=== PATIENT | female | born 1990 | race Caucasian/White ===

== ENCOUNTER 2023-09-12 22:13 | Inpatient (IN) | payer BC, SELFPAY ==
[2023-09-12 22:16] VITALS: BP 116/77; PULSE 117; RESP 18; TEMP 36.8; O2SAT 97; BMI 39.7
--- NOTE | 2023-09-12 22:45 | ED.ABDPAIN1 ---
HPI - Abdominal Pain General Chief Complaint: Abdominal Pain Stated Complaint: Abdominal Pain Time Seen by Provider: 09/12/23 22:18 Source: patient Mode of arrival: walk-in Limitations: no limitations History of Present Illness HPI narrative: 33-year-old female presents for evaluation of epigastric and right upper quadrant abdominal pain that radiates into her back. She recently had an outpatient ultrasound and went to [facility] for treatment. Her ultrasound showed multiple gallstones with no signs of acute cholecystitis. I reviewed her chart from [facility] and she did have an elevated white count at 14.7. The remainder of her labs are normal. She was discharged home with prescription for [place], Zofran and ibuprofen with referral to outpatient general surgery. She states that she has been taking his medications and her nausea is under control but she is having ongoing severe epigastric and right upper quadrant abdominal pain radiates into her back. She states that she ate fruit today because it was all she had at home. She denies any fever. She denies any chest pain or shortness of breath. She was referred to Dr Wray, general surgery but has not received a call from them yet. Related Data Home Medications Medication Instructions Recorded Confirmed albuterol sulfate 90 mcg/actuation inhalation 09/12/23 aerosol inhaler hydrocodone 5 mg-acetaminophen 325 tab 09/12/23 mg tablet ibuprofen 800 mg tablet mg 09/12/23 ondansetron 4 mg disintegrating mg 09/12/23 tablet Allergies Allergy/AdvReac Type Severity Reaction Status Date / Time No Known Drug Allergies Allergy Verified 09/12/23 22:22 Review of Systems ROS Status of ROS 10 or more systems reviewed and unremarkable except as noted in history and below [facility] Social History Smoking status: Never smoker Exam Narrative Exam Narrative: Nurses note and vital signs reviewed and patient is not hypoxic. She is tachycardic with a pulse of 117 General: Non toxic but uncomfortable appearing overweight female, no resp distress, no active vomiting Skin: Warm, dry, no pallor noted. There is no rash noted. Head: Normocephalic, atraumatic Eye: Normal conjunctiva, no drainage, EOMI. PERRL. No scleral icterus Ears, Nose, Mouth, and Throat: oral mucosa is moist. Nares patent. Mouth without vesicles. Ear canals patent. Tm's without Erythema Cardiovascular: Regular Rate and Rhythm, tachycardia at triage with pulse of 117 Respiratory: Patient is in no distress, no accessory muscle use, lungs are clear to auscultation, no wheezing, rales or rhonchi Back: non-tender, no CVA tenderness bilaterally to percussion. GI: Obese, soft, non-distended, epigastric and RUQ tenderness to palpation, normal bowel sounds Musculoskeletal: The patient has no evidence of calf tenderness, no pitting edema, symmetrical pulses noted bilaterally Neurological: A&O x4, normal speech Psychiatric: Cooperative Constitutional Vital Signs, click to edit/add: Last Vital Signs Temp 98.2 F 09/12/23 22:16 Pulse 103 H 09/13/23 00:37 Resp 14 09/13/23 00:37 BP 102/78 09/13/23 00:37 Pulse Ox 96 09/13/23 00:37 O2 Del Method Room Air 09/13/23 00:37 Course Vital Signs Vital signs: Vital Signs Temperature 98.2 F 09/12/23 22:16 Pulse Rate 117 H 09/12/23 22:16 Respiratory Rate 18 09/12/23 22:16 Blood Pressure 116/77 09/12/23 22:16 Pulse Oximetry 97 09/12/23 22:16 Oxygen Delivery Method Room Air 09/12/23 22:16 Temperature 98.2 F 09/12/23 22:16 Pulse Rate 103 H 09/13/23 00:37 Respiratory Rate 14 09/13/23 00:37 Blood Pressure 102/78 09/13/23 00:37 Pulse Oximetry 96 09/13/23 00:37 Oxygen Delivery Method Room Air 09/13/23 00:37 MDM - Abdominal Pain MDM Narrative Medical decision making narrative: This 33-year-old female who recently had an ultrasound that showed gallstones and was subsequently seen and treated at [facility], And discharged home with a referral to Dr. Wray with prescriptions for Zofran and [place] presents for evaluation of ongoing and worsening epigastric abdominal pain that radiates into her back. She is moderately overweight. She does not drink or smoke. She is not on control. I reviewed her labs from [place] and at that time she had normal electrolytes, normal liver function tests and a lipase that was 221. Her white count was 14.7. Hemoglobin was 13.3. She has not had a fever. She states this morning she had some fruit to eat and that upset her stomach with nausea vomiting and abdominal pain. The patient was clearly uncomfortable upon arrival. An IV was placed and she was medicated with IV fluids and Zofran and Toradol. On reevaluation she states she is feeling better. Her white count is elevated today at 17.6. Her electrolytes and liver function tests are normal. Lipase is again elevated at 136. He had ordered a d-dimer prior to the patient getting the CT scan of her abdomen and pelvis and it resulted while she was getting the scan and is elevated at 1.63. I suspect this is likely related to the gastrointestinal symptoms that she is having and not related to a pulmonary embolism as she is active with 2 young children, does not smoke and is not on control however she is overweight.I am unable to CT her chest at this time due to receiving the IV contrast on her CAT scan. CT scan of the abdomen/ pelvis which is included in the body of this report shows edema at the pancreas consistent with acute pancreatitis And again a large gallstone was seen within the lumen of the bladder. Is also the CT scan were discussed with the patient and her . She states her pain is slowly coming back. She will be remedicated with IV Dilaudid and IV fluids. The case was discussed with general surgery on-call, Dr. Smith who suggests IV antibiotics and admission as well as blood cultures. This was discussed with the patient and her and she is agreeable to this. Case was discussed with the hospitalist and she is accepted for admission. We discussed the elevated d dimer and we will obtain a V/Q scan or CTA of the chest once she is able to have another scan per radiology protocol and hold off on anticoagulation at this time as it may interfere with definitive treatment/surgery Medical Records Medical records narrative: The [address] [address] [address] Scan Report Signed Patient: MARIELLE LANDRY MR#: [id number] : 1990 Acct:[id number] Age/Sex: 33 / F ADM Date: 09/12/23 Loc: ER Attending Dr: Ordering Physician: Mitzy Calixto Date of Service: 09/12/23 Procedure(s): CT abdomen pelvis w con Accession Number(s): [id number] cc: JONATHON AYALA ~ The [address] [address] Patient Name: MARIELLE LANDRY MRN: [id number] date: 1990 Sex: F Assigned Patient Location: ER Current Patient Location: ER Accession/Order Number: [id number] Exam Date: 09/12/2023 23:59 Report Date: 09/13/2023 00:48 At the request of: MITZY MARKER Procedure: CT abdomen pelvis w con EXAM: CT abdomen pelvis w con HISTORY: abd pain , hx gallstones COMPARISON: None. TECHNIQUE: IV contrast enhanced CT imaging of the abdomen and pelvis. This CT exam was performed using one or more of the following dose reduction techniques: Automated exposure control, adjustment of the mA and/or KV according to patient size, or use of iterative reconstruction technique. Unless otherwise stated, incidental findings do not require dedicated follow-up imaging. FINDINGS: The lung bases are clear. The heart size is normal. There is a small hiatal hernia. The spleen is upper normal in size. The liver is normal. There is a large gallstone in the lumen of the gallbladder. There is prominent edema surrounding the head and uncinate process of the pancreas consistent with acute pancreatitis. The right kidney is normal. There is a nonobstructing left lower pole renal calculus. The bowel is unobstructed. The appendix is normal. There is no free fluid or free air in the abdomen or pelvis. The bladder is distended and within normal limits. There is a small fat-containing umbilical hernia. The bones are intact without acute abnormality. CT/CT abdomen pelvis w con IMPRESSION: 1. Acute pancreatitis. 2. Nonobstructive left nephrolithiasis. 3. Cholelithiasis. Lab Data Attestation: I reviewed the patient's lab results. (elevated WBC and lipase, elevated d dimer) Labs: Lab Results 09/12/23 Range/Units 23:01 WBC 17.6 H (4.0-11.0) 10^3/uL RBC 4.43 (4.20-5.40) 10^6/uL Hgb 12.7 (12.0-16.0) g/dL Hct 40.4 (36.0-48.0) % MCV 91.2 (81.0-99.0) fL MCH 28.7 (26.7-34.0) pg MCHC 31.4 (29.9-35.2) g/dL RDW 13.5 (11.0-15.0) % Plt Count 324 (150-450) 10^3/uL MPV 11.6 (9.5-13.5) fL Neut % (Auto) 82.0 H (43.0-75.0) % Lymph % (Auto) 7.9 L (20.5-60.0) % Anderson % (Auto) 8.4 (1.7-12.0) % Eos % (Auto) 0.9 (0.9-7.0) % Baso % (Auto) 0.3 (0.2-2.0) % Neut # (Auto) 14.4 H (1.4-6.5) 10^3/uL Lymph # (Auto) 1.4 (1.2-3.8) 10^3/uL Anderson # (Auto) 1.5 H (0.3-0.8) 10^3/uL Eos # (Auto) 0.2 (0.0-0.7) 10^3/uL Baso # (Auto) 0.1 (0.0-0.1) 10^3/uL Abs Immat Gran (auto) 0.09 H (0.00-0.03) 10^3/uL Imm/Tot Granulo (auto) 0.5 (0.0-0.5) % D-Dimer 1.63 H* (<=0.59) mg/L FEU Sodium 140 (136-145) mmol/L Potassium 4.0 (3.5-5.1) mmol/L Chloride 104 (98-107) mmol/L Carbon Dioxide 26.2 (21.0-32.0) mmol/L Anion Gap 13.8 BUN 13.0 (7.0-18.0) mg/dL Creatinine 0.74 (0.55-1.02) mg/dL Est GFR ( Amer) >60 (>=60) Est GFR (Non-Af Amer) >60 (>=60) BUN/Creatinine Ratio 17.6 Glucose 133 H (74-106) mg/dL Lactate 0.9 (0.4-2.0) mmol/L Calcium 8.9 (8.5-10.1) mg/dL Total Bilirubin 0.7 (0.2-1.0) mg/dL AST 32 (15-37) U/L ALT 34 (14-59) U/L Alkaline Phosphatase 62 (46-116) U/L Total Protein 7.6 (6.4-8.2) g/dL Albumin 3.0 L (3.4-5.0) g/dL Globulin 4.6 g/dL Albumin/Globulin Ratio 0.7 Lipase 136.0 H (16.0-77.0) U/L Critical Care Time Critical Care Time Critical Care Time: Yes Total Critical Care Time: 40 Attestation: . Discharge Plan Discharge Chief Complaint: Abdominal Pain Clinical Impression: Acute gallstone pancreatitis, D-dimer, elevated Patient Disposition: Admitted As Inpatient Time of Disposition Decision: 01:22
[2023-09-12] MEDS: 0.9 % SODIUM CHLORIDE 1,000 ML 1000 ML IV (22:59)
[2023-09-12] MEDS: FAMOTIDINE/PF 20 MG/2 ML VIAL IV (23:00)
[2023-09-12] MEDS: KETOROLAC TROMETHAMINE 30 MG/ML VIAL IVP (23:00)
[2023-09-12 23:28] LABS: Basophils Absolute Auto 0.1 10^3/uL (0.0-0.1); Basophils Percent Auto 0.3 % (0.2-2.0); Eosinophils Absolute Auto 0.2 10^3/uL (0.0-0.7); Eosinophils Percent Auto 0.9 % (0.9-7.0); Hematocrit 40.4 % (36.0-48.0); Hemoglobin 12.7 g/dL (12.0-16.0); Immature Granulocytes Abs Auto 0.09 10^3/uL (0.00-0.03); Immature Granulocytes Pct Auto 0.5 % (0.0-0.5); Lymphocytes Absolute Auto 1.4 10^3/uL (1.2-3.8); Lymphocytes Percent Auto 7.9 % (20.5-60.0); Mean Corpuscular HGB Conc 31.4 g/dL (29.9-35.2); Mean Corpuscular Hemoglobin 28.7 pg (26.7-34.0); Mean Corpuscular Volume 91.2 fL (81.0-99.0); Mean Platelet Volume 11.6 fL (9.5-13.5); Monocytes Absolute Auto 1.5 10^3/uL (0.3-0.8); Monocytes Percent Auto 8.4 % (1.7-12.0); Neutrophils Absolute Auto 14.4 10^3/uL (1.4-6.5); Platelet Count 324 10^3/uL (150-450); Red Blood Count 4.43 10^6/uL (4.20-5.40); Red Cell Distribution Width 13.5 % (11.0-15.0); White Blood Count 17.6 10^3/uL (4.0-11.0)
--- NOTE | 2023-09-12 23:45 | CT_ITS ---
The [address] [address] Patient Name: MARIELLE LANDRY MRN: [id number] date: 1990 Sex: F Assigned Patient Location: ER Current Patient Location: Accession/Order Number: [id number] Exam Date: 09/12/2023 23:59 Report Date: 09/13/2023 00:48 At the request of: MITZY MARKER Procedure: CT abdomen pelvis w con EXAM: CT abdomen pelvis w con HISTORY: abd pain , hx gallstones COMPARISON: None. TECHNIQUE: IV contrast enhanced CT imaging of the abdomen and pelvis. This CT exam was performed using one or more of the following dose reduction techniques: Automated exposure control, adjustment of the mA and/or KV according to patient size, or use of iterative reconstruction technique. Unless otherwise stated, incidental findings do not require dedicated follow-up imaging. FINDINGS: The lung bases are clear. The heart size is normal. There is a small hiatal hernia. The spleen is upper normal in size. The liver is normal. There is a large gallstone in the lumen of the gallbladder. There is prominent edema surrounding the head and uncinate process of the pancreas consistent with acute pancreatitis. The right kidney is normal. There is a nonobstructing left lower pole renal calculus. The bowel is unobstructed. The appendix is normal. There is no free fluid or free air in the abdomen or pelvis. The bladder is distended and within normal limits. There is a small fat-containing umbilical hernia. The bones are intact without acute abnormality. CT/CT abdomen pelvis w con IMPRESSION: 1. Acute pancreatitis. 2. Nonobstructive left nephrolithiasis. 3. Cholelithiasis. Electronically authenticated by: BASIL CANTU Date: 09/13/2023 00:48
[2023-09-12 23:46] LABS: Alanine Aminotransferase 34 U/L (14-59); Albumin Globulin Ratio 0.7; Alkaline Phosphatase 62 U/L (46-116); Anion Gap 13.8; Aspartate Amino Transferase 32 U/L (15-37); BUN Creatinine Ratio 17.6; Bilirubin Total 0.7 mg/dL (0.2-1.0); Calcium 8.9 mg/dL (8.5-10.1); Carbon Dioxide 26.2 mmol/L (21.0-32.0); Chloride 104 mmol/L (98-107); Estimated GFR (African America >60 (>=60); Estimated GFR (Non-African Ame >60 (>=60); Globulin 4.6 g/dL; Glucose 133 mg/dL (74-106); Sodium 140 mmol/L (136-145); Total Protein 7.6 g/dL (6.4-8.2)
[2023-09-12 23:51] LABS: Lactate/Lactic Acid 0.9 mmol/L (0.4-2.0)
[2023-09-13] VITALS (25 sets, daily range): BP systolic 102–135; BP diastolic 65–78; PULSE 91–143; RESP 14–18; TEMP 36.8–37.8; O2SAT 81–99; BMI 40.7
[2023-09-13 00:08] LABS: D Dimer 1.63 mg/L FEU (<=0.59)
[2023-09-13] MEDS: 0.9 % SODIUM CHLORIDE 1,000 ML 125 ML IV ×2 (01:35→13:28)
[2023-09-13] MEDS: PIPERACILLIN SODIUM/TAZOBACTAM 3.375 GM in 0.9 % SODIUM CHLORIDE 50 ML IV (01:47)
[2023-09-13] MEDS: MORPHINE SULFATE 2 MG/ML SYRINGE IV (03:50)
[2023-09-13] MEDS: ONDANSETRON PF 4 MG/2 ML VIAL IV (04:20)
[2023-09-13 05:36] LABS: Basophils Percent Auto 0.3 % (0.2-2.0); Eosinophils Absolute Auto 0.2 10^3/uL (0.0-0.7); Eosinophils Percent Auto 1.3 % (0.9-7.0); Hematocrit 36.9 % (36.0-48.0); Hemoglobin 11.4 g/dL (12.0-16.0); Immature Granulocytes Abs Auto 0.06 10^3/uL (0.00-0.03); Immature Granulocytes Pct Auto 0.4 % (0.0-0.5); Lymphocytes Absolute Auto 1.7 10^3/uL (1.2-3.8); Lymphocytes Percent Auto 11.6 % (20.5-60.0); Mean Corpuscular HGB Conc 30.9 g/dL (29.9-35.2); Mean Corpuscular Hemoglobin 28.9 pg (26.7-34.0); Mean Corpuscular Volume 93.4 fL (81.0-99.0); Mean Platelet Volume 11.6 fL (9.5-13.5); Monocytes Absolute Auto 1.5 10^3/uL (0.3-0.8); Monocytes Percent Auto 10.6 % (1.7-12.0); Neutrophils Absolute Auto 10.8 10^3/uL (1.4-6.5); Neutrophils Percent Auto 75.8 % (43.0-75.0); Platelet Count 284 10^3/uL (150-450); Red Blood Count 3.95 10^6/uL (4.20-5.40); Red Cell Distribution Width 13.5 % (11.0-15.0); White Blood Count 14.3 10^3/uL (4.0-11.0)
[2023-09-13 05:40] LABS: INR 0.96; Prothrombin Time 10.2 sec (9.0-11.6)
[2023-09-13 05:46] LABS: Alanine Aminotransferase 41 U/L (14-59); Albumin Globulin Ratio 0.7; Albumin Level 2.8 g/dL (3.4-5.0); Alkaline Phosphatase 56 U/L (46-116); Anion Gap 11.1; Aspartate Amino Transferase 34 U/L (15-37); BUN Creatinine Ratio 11.8; Bilirubin Total 0.7 mg/dL (0.2-1.0); Calcium 8.2 mg/dL (8.5-10.1); Carbon Dioxide 29.6 mmol/L (21.0-32.0); Chloride 104 mmol/L (98-107); Estimated GFR (African America >60 (>=60); Estimated GFR (Non-African Ame >60 (>=60); Globulin 4.3 g/dL; Glucose 119 mg/dL (74-106); Potassium 3.7 mmol/L (3.5-5.1); Sodium 141 mmol/L (136-145); Total Protein 7.1 g/dL (6.4-8.2)
[2023-09-13] MEDS: HYDROMORPHONE HCL 0.5 MG/0.5 ML SYRINGE IV ×5 (07:43→22:39)
[2023-09-13 07:50] LABS: Bilirubin Urine NEGATIVE (NEGATIVE); Blood Urine NEGATIVE (NEGATIVE); Clarity Urine CLEAR (CLEAR); Color Urine LT. YELLOW (YELLOW); Glucose Urine UA NEGATIVE (NEGATIVE); Ketones Urine NEGATIVE (NEGATIVE); Leukocyte Esterase Urine NEGATIVE (NEGATIVE); Nitrite Urine NEGATIVE (NEGATIVE); Protein Urine NEGATIVE (NEG/TRACE); Specific Gravity Urine <=1.005 (1.005-1.025); Urobilinogen Urine 0.2 EU/dL (0.2-1.0); pH Urine 5.5 (5.0-9.0)
[2023-09-13 07:57] LABS: HCG Qualitative NEGATIVE (NEGATIVE)
[2023-09-13 08:06] LABS: WBC Urine NONE SEEN #/HPF (NONE SEEN)
[2023-09-13 08:07] LABS: Bacteria Urine NONE SEEN #/HPF (NONE SEEN); Mucus Urine NONE SEEN (NONE SEEN); RBC Urine NONE SEEN #/HPF (0-2); Squamous Epithelial Cell Urine FEW #/LPF (NONE/RARE)
[2023-09-13 08:08] LABS: Urine Culture Indicated ALREADY ORDERED
[2023-09-13] MEDS: PANTOPRAZOLE SODIUM 40 MG VIAL IV (08:46)
--- NOTE | 2023-09-13 09:08 | P.HP_ITS ---
H&P: HPI History of Present Illness Chief complaint: ABD PAIN ACUTE GALLSTONE PANCREATITIS ELEV D DIMER Narrative: Presented to the emergency room with increasing abdominal pain. Has been getting this worked up as an outpatient. She does have gallstones noted on previous CT scan, upon presentation emergency room she also had elevated lipase. Leukocytosis. With acute pancreatitis patient is admitted for evaluation I saw patient up in the floor patient was fairly comfortable, she just received a dose of Dilaudid, morphine seem to be making her pain worse Review of Systems ROS Status of ROS 10 or more systems reviewed and unremark able except as noted in history and below [facility] Medical History (Updated 09/13/23 @ 03:14 by Beatrice King RN) Asthma ?J45.909 - Unspecified asthma, uncomplicated (ICD-10) Family History (Updated 09/13/23 @ 03:14 by Beatrice King RN) Father Family history of hypertension Social History (Updated 09/13/23 @ 03:17 by Beatrice King RN) Within the past year, how often did you have a drink containing alcohol: monthly or less Within the past year, how many standard drinks containing alcohol did you have on a typical day: 1 or 2 Within the past year, how often did you have six or more drinks on one occasion: never Total score: 0 Score interpretation: A score less than 3 is consistent with normal alcohol consumption. 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 Highest level of school completed/degree received: high school graduate Are you now , , , , never or living with a partner: In a typical week, how many times do you talk on the telephone with family, friends, or neighbors: 3 or more times per week How often do you get together with friends or relatives: once per week How often do you attend nondenominational or baptist services: never Do you belong to any clubs or organizations such as nondenominational groups unions, fraternal or athletic groups, or school groups: no Total score: 2 Score interpretation: A score of greater than or equal to 2 indicates the lowest level of social isolation. Little interest or pleasure in doing things: not at all Feeling down, depressed, or hopeless: not at all Feel stressed/tense/nervous/anxious/difficulty sleeping: not at all Do you think of yourself as: straight/heterosexual Gender Identity: female Meds Home Medications and Allergies Home Medications Medication Instructions Recorded Confirmed Type albuterol sulfate 90 mcg/actuation 1 puff inhalation Q6H PRN 09/12/23 09/13/23 History aerosol inhaler shortness of breath or wheezing hydrocodone 5 mg-acetaminophen 325 1 tab PO Q6H PRN pain 09/12/23 09/13/23 History mg tablet ibuprofen 800 mg tablet 800 mg PO Q8H PRN pain 09/12/23 09/13/23 History ondansetron 4 mg disintegrating 4 mg PO Q6H PRN nausea and vomiting 09/12/23 09/13/23 History tablet fluticasone propionate 115 2 puff inhalation Q12H 09/13/23 09/13/23 History mcg-salmeterol 21 mcg/actuation HFA inhaler omeprazole 40 mg capsule,delayed 40 mg PO .acb 09/13/23 09/13/23 History release tizanidine 4 mg tablet 4 mg PO .qhs 09/13/23 09/13/23 History Allergies Allergy/AdvReac Type Severity Reaction Status Date / Time No Known Drug Allergies Allergy Verified 09/12/23 22:22 Exam Constitutional Vital Signs, click to edit/add: Last Vital Signs Temp 98.3 F 09/13/23 07:54 Pulse 110 H 09/13/23 08:00 Resp 18 09/13/23 07:54 BP 124/77 09/13/23 07:54 Pulse Ox 95 09/13/23 07:54 O2 Del Method Room Air 09/13/23 07:54 Documenting provider has reviewed patient's vital signs: yes Common normals: no apparent distress Respiratory Common normals: normal respiratory effort, no retractions and clear to auscultation bilaterally Cardio Common normals: regular rate and regular rhythm GI Common normals: Normal to inspection, nondistended, normoactive bowel sounds present and soft to palpation; tender (tenderness Right upper quadrant, epigastric, positive Jacob) Results Labs Labs: Short CBC 09/12/23 09/13/23 Range/Units 23:01 05:01 WBC 17.6 H 14.3 H (4.0-11.0) 10^3/uL Hgb 12.7 11.4 L (12.0-16.0) g/dL Hct 40.4 36.9 (36.0-48.0) % Plt Count 324 284 (150-450) 10^3/uL BMP 09/12/23 09/13/23 23:01 05:01 Sodium 140 141 Potassium 4.0 3.7 Chloride 104 104 Carbon Dioxide 26.2 29.6 BUN 13.0 10.0 Creatinine 0.74 0.85 Glucose 133 H 119 H Calcium 8.9 8.2 L Liver Function 09/12/23 09/13/23 Range/Units 23:01 05:01 Total Bilirubin 0.7 0.7 (0.2-1.0) mg/dL AST 32 34 (15-37) U/L ALT 34 41 (14-59) U/L Alkaline Phosphatase 62 56 (46-116) U/L Albumin 3.0 L 2.8 L (3.4-5.0) g/dL Urine 09/13/23 Range/Units 07:35 Urine Color Lt. yellow (YELLOW) Urine Clarity Clear (CLEAR) Urine pH 5.5 (5.0-9.0) Ur Specific [place] <=1.005 A (1.005-1.025) Urine Protein Negative (NEG/TRACE) mg/dL Urine Glucose (UA) Negative (NEGATIVE) mg/dL Assessment and Plan Assessment and Plan (1) Acute gallstone pancreatitis: Plan Sinus tachycardia, leukocytosis secondary to acute pancreatitis, IV fluids, IV antibiotics, consultation to surgery Asthma-continue with home medications Maintain in-pt status likely here for 1 more day - possible surgical intervention
--- NOTE | 2023-09-13 09:42 | CM.NOTE ---
Rounds made with Dr. Valencia. Dr. Valencia explains General Surgery Consulted to determine if surgery needed. Ms. Gregorio verbalizes understanding.
[2023-09-13] MEDS: ADVAIR 1 EACH IH ×2 (10:28→20:03)
[2023-09-13] MEDS: LACTATED RINGER'S SOLUTION 1,000 ML 125 ML IV (11:16)
--- NOTE | 2023-09-13 12:41 | CT_ITS ---
The [address] [address] Patient Name: MARIELLE LANDRY MRN: [id number] date: 1990 Sex: F Assigned Patient Location: [place] Current Patient Location: [place] Accession/Order Number: [id number] Exam Date: 09/13/2023 18:38 Report Date: 09/13/2023 19:38 At the request of: ORION GRIFFIN Procedure: CT angio chest CTA CHEST. INDICATION: Pulmonary embolism. COMPARISON: None available. TECHNIQUE: CT pulmonary angiogram. Initially, limited axial non-contrast images through chest obtained to establish proper bolus timing. Subsequently, contrast enhanced axial CT images were obtained through the chest. Axial, sagittal and coronal reformatted maximum intensity projection images and / or 3D volume rendered images created. FINDINGS: PULMONARY ARTERIES: No intraluminal filling defects within the central or segmental pulmonary arteries to suggest pulmonary embolism.. Limited evaluation of the subsegmental branches. Normal RV:LV ratio (<1). AORTA: The thoracic aorta diameter is normal without aneurysm or dissection. LUNGS: Lungs are clear bilaterally. No pleural effusions.. No pneumothorax. LYMPH NODES: No enlarged mediastinal lymph nodes by CT criteria. HEART: Heart size is normal. No pericardial effusion. UPPER ABDOMEN: Images of the upper abdomen demonstrate no abnormality. MUSCULOSKELETAL: No acute osseous abnormality. CT/CT angio chest IMPRESSION: 1. No pulmonary thromboembolic disease. No aortic aneurysm or dissection. 2. No acute airspace disease. Electronically authenticated by: KONG PULIDO Date: 09/13/2023 19:38
--- NOTE | 2023-09-13 12:42 | PM.GSCN ---
History of Present Illness Consult details Consult date: 09/13/23 Reason for consult: gallstones Requesting physician: Kelli Calixto Narrative: Jenna Gregorio is a 33 year old female presenting due to pancreatitis and cholelithiasis. Patient states for the past 13 years she intermittently is awakened with pain in her chest and back which usually resolves with ibuprofen and a heating pad upon waking back up. States around two weeks ago this pain did not resolve with her typical use of ibuprofen and heating pad. States she tried drink soda and pain was partially relieved with burping which she thought was indigestion. States she followed up with her PCP and an ultrasound was ordered on which showed evidence of cholelithiasis and referral was sent to surgeon. States over the weekend pain worsened and she presented to [facility] ED and was prescribed Vicodin and ibuprofen and discharged home. States Wednesday night pain was persistent and presented to [facility] ED and CT scan showed evidence of pancreatitis. Patient complains of nausea but denies vomiting. She complains of epigastric pain that radiates to her back intermittently. Rates the pain 4-5/10 on examination. States she had two episodes of pale stool but denies diarrhea, constipation, and blood in stool. Denies urinary complaints. Patient has history of asthma but denies all other medical conditions. Denies daily medications. Denies tobacco and drug use and rarely drinks alcohol. Review of Systems ROS Status of ROS 10 or more systems reviewed and unremarkable except as noted in history and below [facility] Medical History Asthma ?J45.909 - Unspecified asthma, uncomplicated (ICD-10) Family History Father Family history of hypertension Social History Within the past year, how often did you have a drink containing alcohol: monthly or less Within the past year, how many standard drinks containing alcohol did you have on a typical day: 1 or 2 Within the past year, how often did you have six or more drinks on one occasion: never Total score: 0 Score interpretation: A score less than 3 is consistent with normal alcohol consumption. 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 Highest level of school completed/degree received: high school graduate Are you now , , , , never or living with a partner: In a typical week, how many times do you talk on the telephone with family, friends, or neighbors: 3 or more times per week How often do you get together with friends or relatives: once per week How often do you attend hinduism or sikhism services: never Do you belong to any clubs or organizations such as hinduism groups unions, [employer] or athletic groups, or school groups: no Total score: 2 Score interpretation: A score of greater than or equal to 2 indicates the lowest level of social isolation. Little interest or pleasure in doing things: not at all Feeling down, depressed, or hopeless: not at all Feel stressed/tense/nervous/anxious/difficulty sleeping: not at all Do you think of yourself as: straight/heterosexual Gender Identity: female Meds Home Medications and Allergies Home Medications Medication Instructions Recorded Confirmed Type albuterol sulfate 90 mcg/actuation 1 puff inhalation Q6H PRN 09/12/23 09/13/23 History aerosol inhaler shortness of breath or wheezing hydrocodone 5 mg-acetaminophen 325 1 tab PO Q6H PRN pain 09/12/23 09/13/23 History mg tablet ibuprofen 800 mg tablet 800 mg PO Q8H PRN pain 09/12/23 09/13/23 History ondansetron 4 mg disintegrating 4 mg PO Q6H PRN nausea and vomiting 09/12/23 09/13/23 History tablet fluticasone propionate 115 2 puff inhalation Q12H 09/13/23 09/13/23 History mcg-salmeterol 21 mcg/actuation HFA inhaler omeprazole 40 mg capsule,delayed 40 mg PO .acb 09/13/23 09/13/23 History release tizanidine 4 mg tablet 4 mg PO .qhs 09/13/23 09/13/23 History Allergies Allergy/AdvReac Type Severity Reaction Status Date / Time No Known Drug Allergies Allergy Verified 09/12/23 22:22 Exam Constitutional Vital Signs, click to edit/add: Last Vital Signs Temp 98.7 F 09/13/23 12:00 Pulse 117 H 09/13/23 12:00 Resp 18 09/13/23 12:00 BP 121/78 09/13/23 12:00 Pulse Ox 96 09/13/23 12:00 O2 Del Method Room Air 09/13/23 12:00 Documenting provider has reviewed patient's vital signs: yes General appearance: cooperative and comfortable; not in distress Nutritional appearance: obese and overweight Respiratory Common normals: normal respiratory effort and clear to auscultation bilaterally Auscultation: no crackles, no rhonchi and no wheezes Cardio Common normals: S1 normal heart sound and S2 normal heart sound; gallops detected, murmurs detected and rub detected Rate: tachycardic Rhythm: regular rhythm GI Common normals: Normal to inspection, nondistended, normoactive bowel sounds present and soft to palpation Palpation: tender Details: epigastric and RUQ and hernia umbilical Extremity Common normals: normal to inspection and full ROM Neuro Sensorium/orientation: awake, alert, oriented to person, oriented to place and oriented to time Psych Common normals: cooperative, affect normal and speech normal Results Labs Labs: Abnormal lab results 09/12/23 09/13/23 09/13/23 Range/Units 23:01 05:01 07:35 WBC 17.6 H 14.3 H (4.0-11.0) 10^3/uL RBC 3.95 L (4.20-5.40) 10^6/uL Hgb 11.4 L (12.0-16.0) g/dL Neut % (Auto) 82.0 H 75.8 H (43.0-75.0) % Lymph % (Auto) 7.9 L 11.6 L (20.5-60.0) % Neut # (Auto) 14.4 H 10.8 H (1.4-6.5) 10^3/uL Emmons # (Auto) 1.5 H 1.5 H (0.3-0.8) 10^3/uL Abs Immat Gran (auto) 0.09 H 0.06 H (0.00-0.03) 10^3/uL D-Dimer 1.63 H* (<=0.59) mg/L FEU Glucose 133 H 119 H (74-106) mg/dL Calcium 8.2 L (8.5-10.1) mg/dL Albumin 3.0 L 2.8 L (3.4-5.0) g/dL Lipase 136.0 H 134.0 H (16.0-77.0) U/L Ur Specific [place] <=1.005 A (1.005-1.025) Ur Squamous Epith Cells Few A (NONE/RARE) #/LPF Diabetes panel 09/12/23 09/13/23 Range/Units 23:01 05:01 Sodium 140 141 (136-145) mmol/L Potassium 4.0 3.7 (3.5-5.1) mmol/L Chloride 104 104 (98-107) mmol/L Carbon Dioxide 26.2 29.6 (21.0-32.0) mmol/L BUN 13.0 10.0 (7.0-18.0) mg/dL Creatinine 0.74 0.85 (0.55-1.02) mg/dL Glucose 133 H 119 H (74-106) mg/dL Calcium 8.9 8.2 L (8.5-10.1) mg/dL AST 32 34 (15-37) U/L ALT 34 41 (14-59) U/L Alkaline Phosphatase 62 56 (46-116) U/L Total Protein 7.6 7.1 (6.4-8.2) g/dL Albumin 3.0 L 2.8 L (3.4-5.0) g/dL Calcium panel 09/12/23 09/13/23 Range/Units 23:01 05:01 Calcium 8.9 8.2 L (8.5-10.1) mg/dL Albumin 3.0 L 2.8 L (3.4-5.0) g/dL Pituitary panel 09/12/23 09/13/23 Range/Units 23:01 05:01 Sodium 140 141 (136-145) mmol/L Potassium 4.0 3.7 (3.5-5.1) mmol/L Chloride 104 104 (98-107) mmol/L Carbon Dioxide 26.2 29.6 (21.0-32.0) mmol/L BUN 13.0 10.0 (7.0-18.0) mg/dL Creatinine 0.74 0.85 (0.55-1.02) mg/dL Glucose 133 H 119 H (74-106) mg/dL Calcium 8.9 8.2 L (8.5-10.1) mg/dL Adrenal panel 09/12/23 09/13/23 Range/Units 23:01 05:01 Sodium 140 141 (136-145) mmol/L Potassium 4.0 3.7 (3.5-5.1) mmol/L Chloride 104 104 (98-107) mmol/L Carbon Dioxide 26.2 29.6 (21.0-32.0) mmol/L BUN 13.0 10.0 (7.0-18.0) mg/dL Creatinine 0.74 0.85 (0.55-1.02) mg/dL Glucose 133 H 119 H (74-106) mg/dL Calcium 8.9 8.2 L (8.5-10.1) mg/dL Total Bilirubin 0.7 0.7 (0.2-1.0) mg/dL AST 32 34 (15-37) U/L ALT 34 41 (14-59) U/L Alkaline Phosphatase 62 56 (46-116) U/L Total Protein 7.6 7.1 (6.4-8.2) g/dL Albumin 3.0 L 2.8 L (3.4-5.0) g/dL All other labs normal. Imaging Abdomen CT scan report/results: report reviewed Assessment and Plan Assessment and Plan (1) Acute gallstone pancreatitis: (2) D-dimer, elevated: Assessment and Plan: r/o pulmonary embolism with patient being tachycardic (3) Asthma: Qualifiers: Asthma persistence: unspecified Asthma severity: unspecified severity (4) Umbilical hernia without mention of obstruction or gangrene: Qualifiers: Obstruction and gangrene presence: without obstruction or gangrene Qualified Code(s): K42.9 - Umbilical hernia without obstruction or gangrene (5) Body mass index (BMI) of 40.1 to 44.9 in adult: Plan Patient to remain NPO for bowel rest and continue IV fluids. Continue analgesics PRN. Patient agreeable to bowel rest and improve lipase levels before elective cholecystectomy Wednesday morning with umbilical hernia repair. CTA ordered to rule out pulmonary embolism due to elevated d-dimer and obesity. Risks of surgeries including infection, injury to common bile duct, blood clots in legs and lungs, heart attack, stroke, and/or discussed. Patient voiced understanding.
[2023-09-13] MEDS: METRONIDAZOLE/SODIUM CHLORIDE 500 MG/100 ML PREMIX 100 MG IV ×2 (14:06→21:27)
[2023-09-13] MEDS: CEFTRIAXONE 1,000 MG in 0.9 % SODIUM CHLORIDE 50 ML 100 MG IV (15:27)
[2023-09-13] MEDS: TIZANIDINE HCL 4 MG TABLET PO (21:33)
[2023-09-14] VITALS (25 sets, daily range): BP systolic 102–128; BP diastolic 66–83; PULSE 63–114; RESP 16–20; TEMP 36.7–37.1; O2SAT 76–98
[2023-09-14] MEDS: 0.9 % SODIUM CHLORIDE 1,000 ML 125 ML IV (00:25)
[2023-09-14] MEDS: HYDROMORPHONE HCL 0.5 MG/0.5 ML SYRINGE IV ×2 (02:51→19:18)
[2023-09-14 04:48] LABS: Basophils Absolute Auto 0.1 10^3/uL (0.0-0.1); Basophils Percent Auto 0.4 % (0.2-2.0); Eosinophils Absolute Auto 0.1 10^3/uL (0.0-0.7); Eosinophils Percent Auto 0.8 % (0.9-7.0); Hematocrit 33.6 % (36.0-48.0); Hemoglobin 10.3 g/dL (12.0-16.0); Immature Granulocytes Abs Auto 0.05 10^3/uL (0.00-0.03); Immature Granulocytes Pct Auto 0.4 % (0.0-0.5); Lymphocytes Absolute Auto 1.4 10^3/uL (1.2-3.8); Lymphocytes Percent Auto 10.6 % (20.5-60.0); Mean Corpuscular HGB Conc 30.7 g/dL (29.9-35.2); Mean Corpuscular Hemoglobin 28.6 pg (26.7-34.0); Mean Corpuscular Volume 93.3 fL (81.0-99.0); Mean Platelet Volume 11.5 fL (9.5-13.5); Monocytes Absolute Auto 1.3 10^3/uL (0.3-0.8); Monocytes Percent Auto 9.9 % (1.7-12.0); Neutrophils Absolute Auto 10.4 10^3/uL (1.4-6.5); Neutrophils Percent Auto 77.9 % (43.0-75.0); Platelet Count 292 10^3/uL (150-450); Red Cell Distribution Width 13.7 % (11.0-15.0); White Blood Count 13.4 10^3/uL (4.0-11.0)
[2023-09-14 05:20] LABS: Alanine Aminotransferase 27 U/L (14-59); Albumin Globulin Ratio 0.5; Albumin Level 2.3 g/dL (3.4-5.0); Alkaline Phosphatase 53 U/L (46-116); Anion Gap 9.8; Aspartate Amino Transferase 13 U/L (15-37); BUN Creatinine Ratio 11.3; Bilirubin Total 0.5 mg/dL (0.2-1.0); Calcium 8.2 mg/dL (8.5-10.1); Carbon Dioxide 26.1 mmol/L (21.0-32.0); Chloride 105 mmol/L (98-107); Estimated GFR (African America >60 (>=60); Estimated GFR (Non-African Ame >60 (>=60); Globulin 4.3 g/dL; Glucose 110 mg/dL (74-106); Potassium 3.9 mmol/L (3.5-5.1); Sodium 137 mmol/L (136-145); Total Protein 6.6 g/dL (6.4-8.2)
[2023-09-14] MEDS: METRONIDAZOLE/SODIUM CHLORIDE 500 MG/100 ML PREMIX 100 MG IV ×3 (05:53→17:27)
[2023-09-14] MEDS: PANTOPRAZOLE SODIUM 40 MG VIAL IV (05:53)
[2023-09-14] MEDS: ACETAMINOPHEN 500 MG TABLET 1000 MG PO (07:26)
[2023-09-14] MEDS: 0.9 % SODIUM CHLORIDE 1,000 ML 1000 ML IV (07:39)
[2023-09-14] MEDS: LACTATED RINGER'S SOLUTION 1,000 ML 100 ML IV ×2 (08:47→20:10)
[2023-09-14] MEDS: CEFTRIAXONE 1,000 MG in 0.9 % SODIUM CHLORIDE 50 ML 100 MG IV ×2 (08:47→21:00)
--- NOTE | 2023-09-14 09:18 | P.PN_ITS ---
Progress Note: Subjective Subjective Interval history: Patient overall improved. Exam Constitutional Vital Signs, click to edit/add: Last Vital Signs Temp 98.7 F 09/14/23 03:55 Pulse 112 H 09/14/23 07:49 Resp 18 09/14/23 03:55 BP 113/76 09/14/23 03:55 Pulse Ox 96 09/14/23 07:49 O2 Del Method Nasal Cannula 09/14/23 04:34 O2 Flow Rate 1 09/14/23 04:34 Documenting provider has reviewed patient's vital signs: yes Common normals: no apparent distress Respiratory Common normals: normal respiratory effort Cardio Common normals: regular rate and regular rhythm GI Common normals: Normal to inspection, nondistended, normoactive bowel sounds present and soft to palpation; tender (Minimal diffusely tender) Progress Note: Objective Labs Labs: Short CBC 09/14/23 Range/Units 03:53 WBC 13.4 H (4.0-11.0) 10^3/uL Hgb 10.3 L (12.0-16.0) g/dL Hct 33.6 L (36.0-48.0) % Plt Count 292 (150-450) 10^3/uL BMP 09/14/23 03:53 Sodium 137 Potassium 3.9 Chloride 105 Carbon Dioxide 26.1 BUN 8.0 Creatinine 0.71 Glucose 110 H Calcium 8.2 L Liver Function 09/14/23 Range/Units 03:53 Total Bilirubin 0.5 (0.2-1.0) mg/dL AST 13 L (15-37) U/L ALT 27 (14-59) U/L Alkaline Phosphatase 53 (46-116) U/L Albumin 2.3 L (3.4-5.0) g/dL Progress Note: A&P Assessment and Plan (1) Acute gallstone pancreatitis: (2) D-dimer, elevated: (3) Asthma: Qualifiers: Asthma persistence: unspecified Asthma severity: unspecified severity (4) Umbilical hernia without mention of obstruction or gangrene: Qualifiers: Obstruction and gangrene presence: without obstruction or gangrene Qualified Code(s): K42.9 - Umbilical hernia without obstruction or gangrene (5) Body mass index (BMI) of 40.1 to 44.9 in adult: Plan Sinus tachycardia, leukocytosis secondary to acute pancreatitis, continue with IV antibiotics and IV fluids, give fluid bolus secondary to tachycardia persisting, discussed case with surgery, surgical intervention tomorrow Asthma-continue with home medications Maintain in-pt status likely here for 1 more day - possible surgical intervention
--- NOTE | 2023-09-14 09:49 | CM.NOTE ---
Rounds made with Dr. Valencia. Continue with bowel rest per surgery recommendations. Potential surgery tomorrow.
[2023-09-14] MEDS: ADVAIR 1 EACH IH ×2 (09:51→20:22)
[2023-09-14] MEDS: TRAMADOL HCL 50 MG TABLET PO (12:13)
[2023-09-14] MEDS: TIZANIDINE HCL 4 MG TABLET PO (21:00)
[2023-09-15] VITALS (14 sets, daily range): BP systolic 106–145; BP diastolic 58–78; PULSE 75–103; RESP 12–18; TEMP 36.2–37.5; O2SAT 90–100
[2023-09-15] MEDS: METRONIDAZOLE/SODIUM CHLORIDE 500 MG/100 ML PREMIX 100 MG IV ×2 (00:03→05:32)
[2023-09-15] MEDS: KETOROLAC TROMETHAMINE 30 MG/ML VIAL IVP (04:25)
[2023-09-15 04:55] LABS: Basophils Percent Auto 0.3 % (0.2-2.0); Eosinophils Absolute Auto 0.2 10^3/uL (0.0-0.7); Eosinophils Percent Auto 1.3 % (0.9-7.0); Hematocrit 34.3 % (36.0-48.0); Hemoglobin 10.8 g/dL (12.0-16.0); Immature Granulocytes Abs Auto 0.06 10^3/uL (0.00-0.03); Immature Granulocytes Pct Auto 0.5 % (0.0-0.5); Lymphocytes Absolute Auto 1.4 10^3/uL (1.2-3.8); Lymphocytes Percent Auto 11.4 % (20.5-60.0); Mean Corpuscular HGB Conc 31.5 g/dL (29.9-35.2); Mean Corpuscular Hemoglobin 28.7 pg (26.7-34.0); Mean Corpuscular Volume 91.2 fL (81.0-99.0); Mean Platelet Volume 11.1 fL (9.5-13.5); Monocytes Percent Auto 8.4 % (1.7-12.0); Neutrophils Absolute Auto 9.2 10^3/uL (1.4-6.5); Neutrophils Percent Auto 78.1 % (43.0-75.0); Platelet Count 321 10^3/uL (150-450); Red Blood Count 3.76 10^6/uL (4.20-5.40); Red Cell Distribution Width 13.4 % (11.0-15.0); White Blood Count 11.8 10^3/uL (4.0-11.0)
[2023-09-15 05:25] LABS: Alanine Aminotransferase 23 U/L (14-59); Albumin Globulin Ratio 0.6; Albumin Level 2.6 g/dL (3.4-5.0); Alkaline Phosphatase 62 U/L (46-116); Aspartate Amino Transferase 13 U/L (15-37); BUN Creatinine Ratio 16.4; Bilirubin Total 0.3 mg/dL (0.2-1.0); Calcium 8.8 mg/dL (8.5-10.1); Carbon Dioxide 26.5 mmol/L (21.0-32.0); Chloride 104 mmol/L (98-107); Estimated GFR (African America >60 (>=60); Estimated GFR (Non-African Ame >60 (>=60); Globulin 4.7 g/dL; Glucose 105 mg/dL (74-106); Potassium 3.5 mmol/L (3.5-5.1); Sodium 136 mmol/L (136-145); Total Protein 7.3 g/dL (6.4-8.2)
[2023-09-15] MEDS: PANTOPRAZOLE SODIUM 40 MG VIAL IV (05:32)
[2023-09-15] MEDS: CEFTRIAXONE 1,000 MG in 0.9 % SODIUM CHLORIDE 50 ML 100 MG IV (08:25)
[2023-09-15] MEDS: INDOCYANINE GREEN 25 MG VIAL INJ (08:59)
--- NOTE | 2023-09-15 09:39 | P.DS_ITS ---
DS: Providers Provider Date of admission: 09/13/23 02:53 Primary care physician: JONATHON AYALA Consults: 09/13/23 02:26 Consult to General Surgeon Routine Consulting Provider: Luke Smith Reason for consultation: Cholelithiasis/pancreatitis Has provider been notified: Yes DS: Diagnosis Discharge Diagnosis (1) Acute gallstone pancreatitis: (2) D-dimer, elevated: (3) Asthma: Qualifiers: Asthma persistence: unspecified Asthma severity: unspecified severity (4) Umbilical hernia without mention of obstruction or gangrene: Qualifiers: Obstruction and gangrene presence: without obstruction or gangrene Qualified Code(s): K42.9 - Umbilical hernia without obstruction or gangrene (5) Body mass index (BMI) of 40.1 to 44.9 in adult: Plan Plan Sinus tachycardia, leukocytosis secondary to acute pancreatitis, continue with IV antibiotics and IV fluids Asthma DS: Summary Hospital Course Hospital Course: Patient presented to the emergency room with increasing abdominal pain. Found to have acute pancreatitis. Workup found gallstones. Patient had this evaluated in outside facility with actually higher lab values and she was very recommended for outpatient treatment. This was failing. She was admitted, placed on IV antibiotics secondary to the significant leukocytosis. Her white blood cell count gradually improved. Her lipase improved to the point that she could safely have her cholecystectomy completed. That was completed today without issue. No significant findings during the surgery. Patient will be discharged home in improving condition. Medications see list. Follow-up with her PCP within the next week. Follow-up with surgery per protocol Time Spent with Patient Time attestation: Total time spent providing and/or coordinating discharge services: Exam Constitutional Vital Signs, click to edit/add: Last Vital Signs Temp 98.4 F 09/15/23 08:00 Pulse 75 09/15/23 08:00 Resp 16 09/15/23 08:00 BP 106/58 09/15/23 08:00 Pulse Ox 95 09/15/23 08:00 O2 Del Method Room Air 09/15/23 08:00 O2 Flow Rate 1 09/15/23 03:47 DS: Data Data Completed and Pending Labs on day of discharge: Labs from last 24 hours 09/15/23 04:35 WBC 11.8 H RBC 3.76 L Hgb 10.8 L Hct 34.3 L MCV 91.2 MCH 28.7 MCHC 31.5 RDW 13.4 Plt Count 321 MPV 11.1 Neut % (Auto) 78.1 H Lymph % (Auto) 11.4 L [place] % (Auto) 8.4 Eos % (Auto) 1.3 Baso % (Auto) 0.3 Neut # (Auto) 9.2 H Lymph # (Auto) 1.4 [place] # (Auto) 1.0 H Eos # (Auto) 0.2 Baso # (Auto) 0.0 Abs Immat Gran (auto) 0.06 H Imm/Tot Granulo (auto) 0.5 Sodium 136 Potassium 3.5 Chloride 104 Carbon Dioxide 26.5 Anion Gap 9.0 BUN 9.0 Creatinine 0.55 Est GFR ( Amer) >60 Est GFR (Non-Af Amer) >60 BUN/Creatinine Ratio 16.4 Glucose 105 Calcium 8.8 Total Bilirubin 0.3 AST 13 L ALT 23 Alkaline Phosphatase 62 Total Protein 7.3 Albumin 2.6 L Globulin 4.7 Albumin/Globulin Ratio 0.6 Lipase 71.0 Preliminary micro results at discharge 09/13/23 01:23 - Preliminary Blood NO GROWTH AT 36-48 HOURS. FINAL TO FOLLOW. 09/13/23 01:18 Blood Culture Result 1 - Preliminary Blood NO GROWTH AT 36-48 HOURS. FINAL TO FOLLOW. Discharge Plan Discharge Disposition: Home, Self-Care Discharge Medications: New metronidazole 500 mg tablet 500 mg PO Q8H 7 Days Qty: 21 0RF ciprofloxacin HCl [Cipro] 500 mg tablet 500 mg PO Q12H Qty: 14 0RF Continued ibuprofen 800 mg tablet 800 mg PO Q8H PRN (Reason: pain) hydrocodone-acetaminophen 5-325 mg tablet 1 tab PO Q6H PRN (Reason: pain) albuterol sulfate 90 mcg/actuation HFA aerosol inhaler 1 puff INHALATION Q6H PRN (Reason: shortness of breath or wheezing) ondansetron 4 mg tablet,disintegrating 4 mg PO Q6H PRN (Reason: nausea and vomiting) fluticasone propion-salmeterol 115-21 mcg/actuation HFA aerosol inhaler 2 puff INHALATION Q12H tizanidine 4 mg tablet 4 mg PO .qhs omeprazole 40 mg capsule,delayed release(DR/EC) 40 mg PO .acb Patient Instructions: Ciprofloxacin (By mouth) (Cipro), Metronidazole (By mouth), Low Fat Diet (ED), Low Fat Diet (DC), Laparoscopic Cholecystectomy (DC), Laparoscopic Cholecystectomy (GEN) Forms: Portal Instructions Discharge Date/Time: 09/15/23 13:18
--- NOTE | 2023-09-15 09:54 | P.GSPRC_ITS ---
Date of procedure: 09/15/23 Indications for Procedure: gallstoone pancreatitis/umbilical hernia Pre-op diagnosis: gallstone pancreatitis/umbilical hernia Post-op diagnosis: same as pre-op Procedure: cholecystectomy with IC green/repair of umbilical hernia Findings: cholecystitis with cholelithiasis/umbilical hernia Anesthesia: LISA Surgeon: Luke Smith Procedure Summary: After again explaining the risks and benefits of the procedure in the preoperative care unit consent was obtained. ?The patient was taken back to the operative room and placed on the operative room table. General endotracheal anesthesia was induced and preoperative antibiotics were given. ?Appropriate time-out was performed. ?Right arm was?tucked at the side. ?Then the bed was positioned appropriately. ?The abdomen was prepped and draped in normal sterile fashion. A periumbilical incision was made. ?Dissection was carried down to the fascia. ?Fascia was elevated with hanna clamps and entered sharply. A 12 mm port was placed into the abdomen and the abdomen was insufflated, there were no complications with insufflation. ?The scope and camera was brought in and then 3 more ports were placed. An 8?mm port was placed in the right lateral position. Two additional?8 mm Davinci ports were placed, 8 cm to the left and one to the right of the umbilicus. ?The patient was then placed in reverse Trendelenburg position and slightly turned to the left. The [employer] robot was docked. The 4th arm was used to grasp the dome of the gallbladder superiorly. ?The peritoneal attachments were taken down with meticulous dissection laterally and medially from the gallbladder. ?At this point the infundibular gallbladder was retracted laterally and a critical view was obtained. ?With the cystic duct inferiorly cystic artery medially and the liver posteriorly. IC Green was used to help identify the cystic duct as well.?Two clips were placed on the patient side and 1 on the specimen side of both the cystic duct and the cystic artery. ?These were then excised. ?The remainder of the gallbladder was taken off of the gallbladder fossa using electrocautery. The gallbladder was then removed through the umbilical port using Endo-Catch bag.The gallbladder fossa was visualized again to confirm no bleeding and no leak from the cystic duct. there was a hernia at the umbilicus and the defect measured about 2 cm through which the gallbladder was removed. This defect was closed transversely with #1 Vicryl suture in interrupted [id number] fashion.the umbilicus was then tacked down to the anterior rectus fascia with 3-0 Vicryl suture in interrupted fashion. The robot was undocked from the patient. The abdomen was deinsufflated.? The skin was closed at all the incisions with 4 0 Monocryl. All incisions and underlying muscle was anesthetized with local anesthetic.?Steri-Strips werethen placed over the incisionsalong with Band-Aids. The patient was extubated and had no immediate postoperative complications. Patient was taken to the PACU in stable condition. Complications: No Condition: stable Disposition: PACU
[2023-09-15] MEDS: BUPIVACAINE HCL 0.5% PF 50 MG/10 ML VIAL 20 ML INJ (10:54)
--- NOTE | 2023-09-15 11:04 | CM.NOTE ---
Rounds made with Dr. Valencia. Plan for surgery this am.
--- NOTE | 2023-09-16 14:02 | CM.DCFOLLOWU ---
1st attempt. No answer
--- NOTE | 2023-09-17 15:03 | CM.DCFOLLOWU ---
2nd attempt. No answer
--- NOTE | 2023-09-20 13:57 | CM.DCFOLLOWU ---
Person spoke with: Jenna How are you feeling? Good How is your pain? No pain Did you understand your discharge instructions? Yes Do you have any questions about your discharge instructions? No Were you given any prescriptions at discharge? Yes Were you able to get your prescriptions filled? Yes Do you understand how to take your medications as ordered? Yes Do you have any questions about your follow up appointment and do you plan to keep your follow up appointment? I have f/u with surgeon scheduled and will attend appt. Is there anything else that you would like to discuss? No Questions/Comments/Concerns/Other:
== END 2023-09-15 13:18 | disposition home or self-care (01) | DRG 418 ==
LOC: ER 09-13 01:22 → MS 09-13 02:57
PROVIDERS: Nurse Practitioner Acute Care; Surgery; Admitting Provider Family Medicine; Emergency Provider Emergency Medicine; PCP Family Medicine; Visit Provider Family Medicine
PROC: 0FT44ZZ Resection of Gallbladder, Percutaneous Endoscopic Approach (ICD-10-PCS; principal; 2023-09-15 09:00)
DX: K85.10 Biliary acute pancreatitis without necrosis or infection (principal); K80.10 Calculus of gallbladder with chronic cholecystitis without obstruction; Z68.41 Body mass index [BMI] 40.0-44.9, adult; J45.909 Unspecified asthma, uncomplicated; Z79.899 Other long term (current) drug therapy; E66.01 Morbid (severe) obesity due to excess calories; K42.9 Umbilical hernia without obstruction or gangrene; R79.89 Other specified abnormal findings of blood chemistry; Z82.49 Family history of ischemic heart disease and other diseases of the circulatory system
CPT/HCPCS: 36415; 71275; 74177; 80053; 81001; 83605; 83690; 84703; 85025; 85378; 85610; 87040; 87086; 88304; 94640; 94761; 96365; 96366; 96367; 96375; 96376; 99285; 99999; G0328; J1094; J1170; J2704; Q9967